=== PATIENT | female | born 1930 | race Caucasian/White ===

== ENCOUNTER → 2016-04-02 | Outpatient (CLI) | payer MEDICARE, OTHER | LOC: SP 13:03 | PROVIDERS: ATTEND Family Medicine | DX: I65.22 Occlusion and stenosis of left carotid artery (principal) | CPT/HCPCS: 93880 ==

== ENCOUNTER → 2016-12-03 | Outpatient (CLI) | payer MEDICARE, OTHER ==
--- NOTE | 2016-12-03 11:07 | RADIOLOGY REPORT (SQ) ---
EXAM DESCRIPTION: WRIST RIGHT 3 VIEWS COMPLETED DATE/TIME: 12/03/2016 10:46 am REASON FOR STUDY: PAIN IN RIGHT HAND M79.641 PAIN IN RIGHT HAND COMPARISON: None. NUMBER OF VIEWS: Three views. TECHNIQUE: AP, lateral, and oblique radiographic images acquired of the right wrist. LIMITATIONS: None. FINDINGS: MINERALIZATION: Normal. BONES: Negative ulnar variance, joint space narrowing and mild bony spurring at the right distal radi oulnar joint. Advanced osteoarthritis at the 1st carpometacarpal joint, the joint space narrowing and bony spurring . Small loose bodies. Remainder of the bony structures at the wrist are otherwise unremarkable. No acute fracture. Caps n o malalignment worrisome for carpal instability. SOFT TISSUES: No soft tissue swelling. No foreign body. OTHER: No other significant finding. IMPRESSION: Osteoarthritis at the distal radioulnar joint and 1st carpometacarpal joint No acute fracture TECHNICAL DOCUMENTATION: JOB ID: [id number] [employer]- All Rights Reserved
--- NOTE | 2016-12-03 11:09 | RADIOLOGY REPORT (SQ) ---
EXAM DESCRIPTION: HAND RIGHT 3 VIEWS COMPLETED DATE/TIME: 12/03/2016 10:46 am REASON FOR STUDY: PAIN IN RIGHT HAND M79.641 PAIN IN RIGHT HAND COMPARISON: None. EXAM PARAMETERS: NUMBER OF VIEWS: Three views. TECHNIQUE: AP, lateral and oblique radiographic images acquired of the right hand. LIMITATIONS: None. FINDINGS: MINERALIZATION: Normal. BONES: No acute fracture or dislocation. No worrisome bone lesions. JOINTS: Advanced osteoarthritis at the distal radioulnar joint, and 1st carpometacarpal joint. Joint space narrowing and bony spurring, articular surface sclerosis. Moderate osteoarthritis at the thumb MCP joint, with joint space narrowing. No bulky bony spurring. Mild osteoarthritis at the 2nd distal interphalangeal joint, 3rd and 4th PIP joints, 5th PIP joint. Mild joint space narrowing without bulky bony spurring SOFT TISSUES: No soft tissue swelling. No foreign body. OTHER: No other significant finding. IMPRESSION: Osteoarthritis TECHNICAL DOCUMENTATION: JOB ID: [id number] [employer]- All Rights Reserved
== END ==
LOC: OD 10:15
PROVIDERS: ATTEND Family Medicine
DX: M79.641 Pain in right hand (principal); M19.041 Primary osteoarthritis, right hand

== ENCOUNTER 2017-07-13 14:19 | Inpatient (IN) | payer MEDICARE, OTHER ==
--- NOTE | 2017-07-13 14:51 | ER Document Report ---
ED General - General Chief Complaint: Shortness Of Breath Stated Complaint: SHORTNESS OF BREATH Time Seen by Provider: 07/13/17 14:46 Mode of Arrival: Ambulatory Information source: Patient Notes: This is an 86-year-old female with a remote history of breast cancer (status post left mastectomy in 1993), pulmonary embolism in 2014 (treated with 6 months of Eliquis), presents to the emergency room with progressively worsening shortness of breath over the past month. TRAVEL OUTSIDE OF THE [place] IN LAST 30 DAYS: No - HPI Onset: Last week Onset/Duration: Gradual Quality of pain: No pain Severity: None Pain Level: Denies Associated symptoms: Shortness of breath. denies: Chest pain, Fever Exacerbated by: Denies Relieved by: Denies Similar symptoms previously: No Recently seen / treated by doctor: No - Related Data Allergies/Adverse Reactions: Sulfa (Sulfonamide Antibiotics) Allergy (Intermediate, Verified 07/13/17 14:20) Hives codeine [Codeine] Adverse Reaction (Mild, Verified 07/13/17 14:20) Nausea bee stings Allergy (Severe, Uncoded 07/13/17 14:20) Hives Past Medical History - General Information source: Patient - Social History Smoking Status: Never Smoker Cigarette use (# per day): No Chew tobacco use (# tins/day): No Frequency of alcohol use: None Drug Abuse: None Lives with: Family Family History: CAD, CVA, Hyperlipidemia, Hypertension, Malignancy, Thyroid Disfunction Patient has suicidal ideation: No Patient has homicidal ideation: No - Past Medical History Cardiac Medical History: Reports: Hx Hypercholesterolemia, Hx Pulmonary Embolism Denies: Hx Heart Attack, Hx Hypertension Pulmonary Medical History: Denies: Hx Asthma Neurological Medical History: Reports: Hx Migraine. Denies: Hx Cerebrovascular Accident, Hx Seizures Endocrine Medical History: Reports: Hx Hypothyroidism Renal/ Medical History: Reports: Hx Kidney Stones Malignancy Medical History: Reports: Hx Breast Cancer - Left GI Medical History: Reports: Hx Gastroesophageal Reflux Disease, Hx Colonoscopy , Hx Endoscopy. Denies: Hx Hiatal Hernia, Hx Ulcer Musculoskeltal Medical History: Reports Hx Arthritis Past Surgical History: Reports: Hx Mastectomy - left. Denies: Hx Hysterectomy, Hx Open Heart Surgery - Immunizations Immunizations up to date: Yes Hx Diphtheria, Pertussis, Tetanus Vaccination: Yes Review of Systems - Review of Systems Constitutional: denies: Chills, Fever EENT: No symptoms reported Cardiovascular: See HPI Respiratory: See HPI Gastrointestinal: No symptoms reported Genitourinary: No symptoms reported Female Genitourinary: No symptoms reported Musculoskeletal: No symptoms reported Skin: No symptoms reported Hematologic/Lymphatic: No symptoms reported Neurological/Psychological: No symptoms reported Physical Exam - Vital signs Vitals: Temp Pulse Resp BP Pulse Ox 97.8 F 78 14 148/54 H 95 07/13/17 14:25 07/13/17 14:25 07/13/17 14:25 07/13/17 14:25 07/13/17 14:25 Notes: Physical exam: GENERAL: 86-year-old female, alert and oriented 3, no acute distress HEAD: Atraumatic, normocephalic. EYES: Pupils equal round and reactive to light, extraocular movements intact, sclera anicteric, conjunctiva are normal. ENT: TMs normal, nares patent, oropharynx clear without exudates. Moist mucous membranes. NECK: Normal range of motion, supple without obvious mass or JVD. LUNGS: Breath sounds clear to auscultation bilaterally and equal. No wheezes rales or rhonchi. HEART: Regular rate and rhythm with a 1/6 systolic murmur at the left lateral sternal border, rubs or gallops. ABDOMEN: Soft, normoactive bowel sounds. No tenderness to palpation. No guarding, no rebound. No masses appreciated. EXTREMITIES: Normal range of motion, no pitting or edema. No clubbing or cyanosis. NEUROLOGICAL: Cranial nerves II through XII grossly intact. Normal speech, moving all extremities. PSYCH: Normal mood, normal affect. SKIN: Warm, Dry, normal turgor, no rashes or lesions noted. Course - Re-evaluation Re-evalutation: 07/13/17 17:41 The concern for this patient is that she is desaturating with minimal activity. She does have a history of valve disease in the past and does have a murmur appreciated on exam now. The plan will be to admit, continue cardiac enzymes, cardiac evaluation including echo. - Vital Signs Vital signs: Temp Pulse Resp BP Pulse Ox 98.2 F 75 16 147/59 H 98 07/13/17 20:38 07/13/17 20:38 07/13/17 20:38 07/13/17 20:38 07/13/17 20:38 - Laboratory Result Diagrams: 07/13/17 15:03 07/13/17 15:03 Laboratory results interpreted by me: 07/13/17 07/13/17 07/13/17 15:03 15:03 15:03 Hgb 11.8 L Hct 35.5 L BUN 21 H Est GFR (Non-Af Amer) 53 L TSH < 0.01 L Free T4 2.59 H - EKG Interpretation by Me Rate: Normal Rhythm: NSR - EKG shows normal sinus rhythm with a ventricular rate of 77, no acute ST-T wave changes Discharge - Discharge Clinical Impression: Dyspnea Condition: Stable Disposition: ADMITTED INPATIENT Admitting Provider: [facility] Admitted: Telemetry
[2017-07-13 15:30] LABS: ABSOLUTE EOSINOPHILS # (AUTO) 0.2 10^3/uL (0.0-0.6); ABSOLUTE LYMPHOCYTES (AUTO) 1.6 10^3/uL (0.5-4.7); ABSOLUTE MONOCYTES (AUTO) 0.7 10^3/uL (0.1-1.4); BASOPHILS % (AUTO) 0.9 % (0-2); EOSINOPHILS % (AUTO) 3.1 % (0-6); HEMATOCRIT 35.5 % (36.0-47.0); HEMOGLOBIN 11.8 g/dL (12.0-15.5); LYMPHOCYTES % (AUTO) 29.2 % (13-45); MEAN CORPUSCULAR HEMOGLOBIN 30.9 pg (27.0-33.4); MEAN CORPUSCULAR HGB CONC 33.2 g/dL (32.0-36.0); MEAN CORPUSCULAR VOLUME 93 fl (80-97); MONOCYTES % (AUTO) 12.1 % (3-13); PLATELET COUNT 217 10^3/uL (150-450); RED BLOOD COUNT 3.81 10^6/uL (3.72-5.28); RED CELL DISTRIBUTION WIDTH 13.3 % (11.5-14.0); SEGMENTED NEUTROPHILS % (AUTO) 54.7 % (42-78); TOTAL CELLS COUNTED % (AUTO) 100 %; WHITE BLOOD COUNT 5.4 10^3/uL (4.0-10.5)
[2017-07-13 15:36] LABS: INTERNATIONAL RATION (INR) 1.06; PROTHROMBIN TIME 14.4 SEC (11.4-15.4)
[2017-07-13 15:53] LABS: ALANINE AMINOTRANSFERASE 25 U/L (9-52); ALBUMIN 3.6 g/dL (3.5-5.0); ALKALINE PHOSPHATASE 84 U/L (38-126); ANION GAP 10 (5-19); ASPARTATE AMINO TRANSFERASE 24 U/L (14-36); BILIRUBIN,DIRECT 0.3 mg/dL (0.0-0.4); BILIRUBIN,TOTAL 0.5 mg/dL (0.2-1.3); BLOOD UREA NITROGEN 21 mg/dL (7-20); CALCIUM 9.4 mg/dL (8.4-10.2); CARBON DIOXIDE 27 mmol/L (22-30); CHLORIDE 106 mmol/L (98-107); CREATINE KINASE 64 U/L (30-135); GLUCOSE 107 mg/dL (75-110); POTASSIUM 4.3 mmol/L (3.6-5.0); SODIUM 142.7 mmol/L (137-145); TOTAL PROTEIN 6.4 g/dL (6.3-8.2)
[2017-07-13 16:05] LABS: CREATINE KINASE MB 1.43 ng/mL (<4.55); TROPONIN I < 0.012 ng/mL
--- NOTE | 2017-07-13 17:41 | RADIOLOGY REPORT (SQ) ---
EXAM DESCRIPTION: CTA CHEST COMPLETED DATE/TIME: 07/13/2017 5:13 pm REASON FOR STUDY: sob COMPARISON: 11/15/2015 TECHNIQUE: CT scan of the chest performed using helical scanning technique with dynamic intravenous contrast injection. Images reviewed with lung, soft tissue and bone windows. Reconstructed coronal and sagittal MPR images reviewed. Additional 3 dimensional post-processing performed to develop Maximal Intensity Projection images (CA P). All images stored on PACS. All CT scanners at this facility use dose modulation, iterative reconstruction, and/or weight based d osing when appropriate to reduce radiation dose to as low as reasonably achievable (ALARA). [facility]: Dose Right [facility]: CareDose [facility]: Dose Right [facility]: Teradose 4D [facility]: SiC Processing CONTRAST TYPE AND DOSE: contrast/concentration: Isovue 370.00 mg/ml; Total Contrast Delivered: 65.0 ml; Total Saline Delivered: 105.0 ml Contrast bolus optimized for the pulmonary arteries. Not diagnostic for the aorta. RENAL FUNCTION: BUN 21 creatinine 1 RADIATION DOSE: CT Rad equipment meets quality standard of care and radiation dose reduction techniq ues were employed. CTDIvol: 14.3 - 16.5 mGy. DLP: 542 mGy-cm. . LIMITATIONS: None. FINDINGS: LUNGS AND PLEURA: Pleural/parenchymal scarring in the lung apices with pleural calcificati ons. AORTA AND GREAT VESSELS: No aneurysm. Contrast bolus not optimized for the aorta. HEART: No pericardial effusion. Moderate to marked coronary artery calcifications. PULMONARY ARTERIES: No emboli visualized in the main pulmonary arteries or the segmental branches. HILAR AND MEDIASTINAL STRUCTURES: No hilar or mediastinal masses or adenopathy. There is a prominent hiatal hernia. HARDWARE: None in the chest. UPPER ABDOMEN: Aortic atherosclerosis. Hiatal hernia. No acute abnormality. THYROID AND OTHER SOFT TISSUES: No masses. No adenopathy. BONES: Thoracolumbar spondylosis. Lumbar degenerative disc changes. 3D MIPS: Confirm above findings. OTHER: No other significant finding. IMPRESSION: 1. There is no evidence of pulmonary emboli. 2. Apical pleural/ parenchymal scarring. 3. Prominent hiatal hernia. 4. Aortic atherosclerosis. 5. Thoracolumbar degenerative changes. COMMENT: Quality ID # [id number]: Final reports with documentation of one or more dose reduction techniques (e.g., Automated exposure control, adjustment of the mA and/or kV according to patient size, use of iterative reconstruction technique) TECHNICAL DOCUMENTATION: JOB ID: [id number] [employer]- All Rights Reserved Reading location - IP/workstation name: [email or web address]
[2017-07-13] MEDS ORDERED: IPRATROPIUM/ALBUTEROL 0.5-2.5 MG/3 ML AMPUL NEB PRN (17:45)
[2017-07-13] MEDS ORDERED: ACETAMINOPHEN 325 MG TABLET PO PRN (17:45)
--- NOTE | 2017-07-13 17:55 | PDOC H&P ---
History of Present Illness Admission Date/PCP: PRITESH OLVERA MD Patient complains of: sob/hypoxia History of Present Illness: GABI ESCOBEDO is a 86 year old female pt came to [facility] today with c/o sob and fatigue since last 2wk pt o2 sat was 92 on room air and drop 80 when she walk pt had h/o pein 2014 and was 6 month eliqus pt denied any chest pain no cough pt seen by dr araceli soliz for palpitation and all work up stable Past Medical History Cardiac Medical History: Reports: Atrial Fibrillation, Hyperlipidema, Pulmonary Embolism Denies: Myocardial Infarction, Hypertension Pulmonary Medical History: Denies: Asthma Neurological Medical History: Reports: Migraine Denies: Seizures Endocrine Medical History: Reports: Hypothyroidism Malignancy Medical History: Reports: Breast Cancer - Left GI Medical History: Reports: Gastroesophageal Reflux Disease Denies: Hiatal Hernia Musculoskeltal Medical History: Reports: Arthritis Hematology: Denies: Anemia, Sickle Cell Disease Past Surgical History Past Surgical History: Reports: Mastectomy - left Denies: Amputation, Hysterectomy Social History Smoking Status: Never Smoker Frequency of Alcohol Use: None Hx Recreational Drug Use: No Hx Prescription Drug Abuse: No Family History Family History: Reviewed & Not Pertinent, CAD, CVA, Hyperlipidemia, Hypertension , Malignancy, Thyroid Disfunction Parental Family History Reviewed: Yes Children Family History Reviewed: Yes Sibling(s) Family History Reviewed.: Yes Medication/Allergy Home Medications: Atorvastatin Calcium [Lipitor 10 mg Tablet] 10 mg PO QHS 06/01/11 Paroxetine HCl [Paxil] 10 mg PO DAILY 06/01/11 Apixaban [Eliquis 5 mg Tablet] 5 mg PO BID #60 tablet 10/03/14 Levothyroxine Sodium 150 mcg PO DAILY #30 tablet 10/03/14 Tramadol HCl/Acetaminophen [Ultracet 37.5 mg/325 mg Tablet] 1 each PO Q6 #20 tablet 12/26/14 Acyclovir [Zovirax 800 mg Tablet] 800 mg PO 5XD #50 tab 11/18/15 Allergies/Adverse Reactions: Sulfa (Sulfonamide Antibiotics) Allergy (Intermediate, Verified 07/13/17 14:20) Hives codeine [Codeine] Adverse Reaction (Mild, Verified 07/13/17 14:20) Nausea bee stings Allergy (Severe, Uncoded 07/13/17 14:20) Hives Review of Systems Constitutional: PRESENT: fatigue, weakness. ABSENT: chills, fever(s), headache( s), weight gain, weight loss Eyes: ABSENT: visual disturbances Ears: ABSENT: hearing changes Cardiovascular: PRESENT: dyspnea on exertion. ABSENT: chest pain, edema, orthropnea, palpitations Respiratory: ABSENT: cough, hemoptysis Gastrointestinal: ABSENT: abdominal pain, constipation, diarrhea, hematemesis, hematochezia, nausea, vomiting Genitourinary: ABSENT: dysuria, hematuria Musculoskeletal: ABSENT: joint swelling Integumentary: ABSENT: rash, wounds Neurological: ABSENT: abnormal gait, abnormal speech, confusion, dizziness, focal weakness, syncope Psychiatric: ABSENT: anxiety, depression, homidical ideation, suicidal ideation Endocrine: ABSENT: cold intolerance, heat intolerance, menstrual abnormalities, polydipsia, polyuria Hematologic/Lymphatic: ABSENT: easy bleeding, easy bruising, lymphadenopathy Physical Exam Vital Signs: Temp Pulse Resp BP Pulse Ox 97.8 F 78 19 140/64 H 97 07/13/17 14:25 07/13/17 14:25 07/13/17 15:01 07/13/17 15:01 07/13/17 15:06 Intake & Output 07/12/17 07/13/17 07/14/17 06:59 06:59 06:59 Weight 65.9 kg General appearance: PRESENT: no acute distress, well-developed, well-nourished Head exam: PRESENT: atraumatic, normocephalic Eye exam: PRESENT: conjunctiva pink, EOMI, PERRLA. ABSENT: scleral icterus Ear exam: PRESENT: normal external ear exam Mouth exam: PRESENT: moist, tongue midline Neck exam: PRESENT: full ROM. ABSENT: carotid bruit, JVD, lymphadenopathy, thyromegaly Respiratory exam: PRESENT: clear to auscultation savita Cardiovascular exam: PRESENT: RRR. ABSENT: diastolic murmur, rubs, systolic murmur Pulses: PRESENT: normal dorsalis pedis pul, +2 pedal pulses bilateral Vascular exam: PRESENT: normal capillary refill GI/Abdominal exam: PRESENT: normal bowel sounds, soft. ABSENT: distended, guarding, mass, organolmegaly, rebound, tenderness Rectal exam: PRESENT: deferred Extremities exam: ABSENT: pedal edema Musculoskeletal exam: PRESENT: ambulatory Neurological exam: PRESENT: alert, awake, oriented to person, oriented to place , oriented to time, oriented to situation, CN II-XII grossly intact. ABSENT: motor sensory deficit Psychiatric exam: PRESENT: appropriate affect, normal mood. ABSENT: homicidal ideation, suicidal ideation Skin exam: PRESENT: dry, intact, warm. ABSENT: cyanosis, rash Results Laboratory Results: 07/13/17 15:03 07/13/17 15:03 07/13/17 07/13/17 15:03 15:03 WBC 5.4 RBC 3.81 Hgb 11.8 L Hct 35.5 L MCV 93 MCH 30.9 MCHC 33.2 RDW 13.3 Plt Count 217 Seg Neutrophils % 54.7 Lymphocytes % 29.2 Monocytes % 12.1 Eosinophils % 3.1 Basophils % 0.9 Absolute Neutrophils 3.0 Absolute Lymphocytes 1.6 Absolute Monocytes 0.7 Absolute Eosinophils 0.2 Absolute Basophils 0.0 Sodium 142.7 Potassium 4.3 Chloride 106 Carbon Dioxide 27 Anion Gap 10 BUN 21 H Creatinine 0.99 Est GFR ( Amer) > 60 Est GFR (Non-Af Amer) 53 L Glucose 107 Calcium 9.4 Total Bilirubin 0.5 AST 24 ALT 25 Alkaline Phosphatase 84 Total Protein 6.4 Albumin 3.6 07/13/17 07/13/17 15:03 15:03 Creatine Kinase 64 CK-MB (CK-2) 1.43 Troponin I < 0.012 Impressions: Chest/Abdomen CTA 07/13/17 16:31 IMPRESSION: 1. There is no evidence of pulmonary emboli. 2. Apical pleural/ parenchymal scarring. 3. Prominent hiatal hernia. 4. Aortic atherosclerosis. 5. Thoracolumbar degenerative changes. Assessment & Plan - Diagnosis (1) Shortness of breath Is this a current diagnosis for this admission?: Yes Plan: cta neg will order 2 d echo cont pulse ox consult cardilogy (2) Fatigue Qualifiers: Fatigue type: unspecified Qualified Code(s): R53.83 - Other fatigue Is this a current diagnosis for this admission?: Yes Plan: check tsh (3) Hypertension Qualifiers: Hypertension type: essential hypertension Qualified Code(s): I10 - Essential (primary) hypertension Is this a current diagnosis for this admission?: Yes Plan: stable (4) Hyperlipidemia Qualifiers: Hyperlipidemia type: unspecified Qualified Code(s): E78.5 - Hyperlipidemia , unspecified Is this a current diagnosis for this admission?: Yes (5) Arthritis Is this a current diagnosis for this admission?: Yes (6) Hypothyroidism Qualifiers: Hypothyroidism type: unspecified Qualified Code(s): E03.9 - Hypothyroidism , unspecified Is this a current diagnosis for this admission?: Yes Plan: check tsh (7) Breast CA Qualifiers: Breast location: unspecified site of breast Is this a current diagnosis for this admission?: Yes Plan: s/p surgery - Time Time Spent: 30 to 50 Minutes Medications reviewed and adjusted accordingly: Yes Anticipated discharge: Home Within: Other - Inpatient Certification Medical Necessity: Need Close Monitoring Due to Risk of Patient Decompensation Post Hospital Care: D/C Records Coordinator Documentation - Plan Summary Plan Summary: d/w pt and daughter about all test repoart and admit and see md order
[2017-07-13 18:33] LABS: FREE T4 (FREE THYROXINE) 2.59 ng/dL (0.78-2.19)
[2017-07-13 18:50] LABS: THYROID STIMULATING HORMONE < 0.01 uIU/mL (0.47-4.68)
--- NOTE | 2017-07-13 21:38 | EKG REPORT ---
SEVERITY:- ABNORMAL ECG - SINUS RHYTHM LEFT ATRIAL ABNORMALITY LVH WITH SECONDARY REPOLARIZATION ABNORMALITY : Confirmed by: Marilee Willard 13-Jul-2017 21:37:56
[2017-07-13] MEDS: ATORVASTATIN CALCIUM 10 MG TABLET PO SCH (21:45)
[2017-07-13] MEDS: FAMOTIDINE 20 MG TABLET PO SCH (21:45)
[2017-07-13] MEDS: PAROXETINE HCL 20 MG TABLET PO SCH (21:45)
[2017-07-13] MEDS: ASPIRIN 81 MG TABLET, ENT COATED PO SCH (21:45)
[2017-07-13 21:47] LABS: CREATINE KINASE MB 1.15 ng/mL (<4.55); NT PRO BNP 592 pg/mL (<450)
[2017-07-13 21:48] LABS: TROPONIN I < 0.012 ng/mL
[2017-07-14 03:14] LABS: ABSOLUTE EOSINOPHILS # (AUTO) 0.3 10^3/uL (0.0-0.6); ABSOLUTE LYMPHOCYTES (AUTO) 2.1 10^3/uL (0.5-4.7); ABSOLUTE MONOCYTES (AUTO) 0.7 10^3/uL (0.1-1.4); ABSOLUTE NEUT (AUTO) 2.3 10^3/uL (1.7-8.2); BASOPHILS % (AUTO) 0.8 % (0-2); EOSINOPHILS % (AUTO) 4.7 % (0-6); HEMATOCRIT 33.3 % (36.0-47.0); HEMOGLOBIN 11.2 g/dL (12.0-15.5); LYMPHOCYTES % (AUTO) 38.5 % (13-45); MEAN CORPUSCULAR HEMOGLOBIN 31.1 pg (27.0-33.4); MEAN CORPUSCULAR HGB CONC 33.7 g/dL (32.0-36.0); MEAN CORPUSCULAR VOLUME 92 fl (80-97); MONOCYTES % (AUTO) 13.3 % (3-13); PLATELET COUNT 187 10^3/uL (150-450); RED BLOOD COUNT 3.62 10^6/uL (3.72-5.28); RED CELL DISTRIBUTION WIDTH 12.9 % (11.5-14.0); SEGMENTED NEUTROPHILS % (AUTO) 42.7 % (42-78); TOTAL CELLS COUNTED % (AUTO) 100 %; WHITE BLOOD COUNT 5.4 10^3/uL (4.0-10.5)
[2017-07-14 03:23] LABS: ANION GAP 6 (5-19); BLOOD UREA NITROGEN 22 mg/dL (7-20); CALCIUM 9.2 mg/dL (8.4-10.2); CARBON DIOXIDE 28 mmol/L (22-30); CHLORIDE 109 mmol/L (98-107); CREATINE KINASE 53 U/L (30-135); GLUCOSE 104 mg/dL (75-110); POTASSIUM 4.1 mmol/L (3.6-5.0); SODIUM 143.2 mmol/L (137-145)
[2017-07-14 03:35] LABS: CREATINE KINASE MB 0.87 ng/mL (<4.55)
[2017-07-14 03:39] LABS: TROPONIN I < 0.012 ng/mL
[2017-07-14] MEDS ORDERED: LEVOTHYROXINE SODIUM 0.1 MG TABLET PO SCH (06:00)
[2017-07-14] MEDS ORDERED: LEVOTHYROXINE SODIUM 0.075 MG TABLET PO SCH (06:00)
--- NOTE | 2017-07-14 08:26 | PDOC PROGRESS REPORT ---
Subjective Progress Note for:: 07/14/17 Subjective:: Patient is currently doing well denied any chest pain denied any shortness of the breath CTA negative for pulmonary embolism Patient seen by cardiology wait for the echocardiogram Since TSH is very low Reason For Visit: SOB HYPOXIA Physical Exam Vital Signs: Temp Pulse Resp BP Pulse Ox 97.9 F 71 18 127/44 H 96 07/14/17 04:02 07/14/17 04:02 07/14/17 04:02 07/14/17 04:02 07/14/17 04:02 Intake & Output 07/13/17 07/14/17 07/15/17 06:59 06:59 06:59 Intake Total 320 Balance 320 Weight 57.4 kg General appearance: PRESENT: no acute distress, well-developed, well-nourished Head exam: PRESENT: atraumatic, normocephalic Eye exam: PRESENT: conjunctiva pink, EOMI, PERRLA. ABSENT: scleral icterus Ear exam: PRESENT: normal external ear exam Mouth exam: PRESENT: moist, tongue midline Neck exam: PRESENT: full ROM. ABSENT: carotid bruit, JVD, lymphadenopathy, thyromegaly Respiratory exam: PRESENT: clear to auscultation savita Cardiovascular exam: PRESENT: RRR. ABSENT: diastolic murmur, rubs, systolic murmur Pulses: PRESENT: normal dorsalis pedis pul, +2 pedal pulses bilateral Vascular exam: PRESENT: normal capillary refill GI/Abdominal exam: PRESENT: normal bowel sounds, soft. ABSENT: distended, guarding, mass, organolmegaly, rebound, tenderness Rectal exam: PRESENT: deferred Extremities exam: ABSENT: pedal edema Musculoskeletal exam: PRESENT: ambulatory Neurological exam: PRESENT: alert, awake, oriented to person, oriented to place , oriented to time, oriented to situation, CN II-XII grossly intact. ABSENT: motor sensory deficit Psychiatric exam: PRESENT: appropriate affect, normal mood. ABSENT: homicidal ideation, suicidal ideation Skin exam: PRESENT: dry, intact, warm. ABSENT: cyanosis, rash Results Laboratory Results: 07/14/17 03:03 07/14/17 03:03 07/14/17 07/14/17 03:03 03:03 WBC 5.4 RBC 3.62 L Hgb 11.2 L Hct 33.3 L MCV 92 MCH 31.1 MCHC 33.7 RDW 12.9 Plt Count 187 Seg Neutrophils % 42.7 Lymphocytes % 38.5 Monocytes % 13.3 H Eosinophils % 4.7 Basophils % 0.8 Absolute Neutrophils 2.3 Absolute Lymphocytes 2.1 Absolute Monocytes 0.7 Absolute Eosinophils 0.3 Absolute Basophils 0.0 Sodium 143.2 Potassium 4.1 Chloride 109 H Carbon Dioxide 28 Anion Gap 6 BUN 22 H Creatinine 0.78 Est GFR ( Amer) > 60 Est GFR (Non-Af Amer) > 60 Glucose 104 Calcium 9.2 07/13/17 07/13/17 07/14/17 21:03 21:03 03:03 Creatine Kinase 62 CK-MB (CK-2) 1.15 0.87 Troponin I < 0.012 < 0.012 NT-Pro-B Natriuret Pep 592 H 07/14/17 03:03 Creatine Kinase 53 CK-MB (CK-2) Troponin I NT-Pro-B Natriuret Pep Impressions: Chest/Abdomen CTA 07/13/17 16:31 IMPRESSION: 1. There is no evidence of pulmonary emboli. 2. Apical pleural/ parenchymal scarring. 3. Prominent hiatal hernia. 4. Aortic atherosclerosis. 5. Thoracolumbar degenerative changes. Assessment & Plan - Diagnosis (1) Shortness of breath Is this a current diagnosis for this admission?: Yes Plan: Will wait for the echo reportFollow-up with cardiology will try to walk the patient's and check the patient's pulse ox discussed with the nursing staff (2) Fatigue Qualifiers: Fatigue type: unspecified Qualified Code(s): R53.83 - Other fatigue Is this a current diagnosis for this admission?: Yes Plan: Stable underlying thyroid issues we will hold the thyroid medications rule out any cardiac issues (3) Hypertension Qualifiers: Hypertension type: essential hypertension Qualified Code(s): I10 - Essential (primary) hypertension Is this a current diagnosis for this admission?: Yes Plan: stable (4) Hyperlipidemia Qualifiers: Hyperlipidemia type: unspecified Qualified Code(s): E78.5 - Hyperlipidemia , unspecified Is this a current diagnosis for this admission?: Yes (5) Arthritis Is this a current diagnosis for this admission?: Yes (6) Hypothyroidism Qualifiers: Hypothyroidism type: unspecified Qualified Code(s): E03.9 - Hypothyroidism , unspecified Is this a current diagnosis for this admission?: Yes Plan: Currently hold the thyroid medications (7) Breast CA Qualifiers: Breast location: unspecified site of breast Is this a current diagnosis for this admission?: Yes - Time Time Spent with patient: 15-24 minutes Medications reviewed and adjusted accordingly: Yes Anticipated discharge: Home Within: Other - Inpatient Certification Medical Necessity: Need Close Monitoring Due to Risk of Patient Decompensation Post Hospital Care: D/C Manugrapher Documentation - Plan Summary Plan Summary: MD orders as above discussed with the patient and the daughter regarding the patient's current conditions coordinate care with a home management supervisor
[2017-07-14] MEDS: FAMOTIDINE 20 MG TABLET PO SCH ×2 (09:37→21:13)
[2017-07-14] MEDS: ENOXAPARIN SODIUM INJ 40 MG/0.4 ML DISP.SYRIN SUBCUT SCH (09:37)
--- NOTE | 2017-07-14 09:44 | EKG REPORT ---
SEVERITY:- ABNORMAL ECG - SINUS RHYTHM LEFT VENTRICULAR HYPERTROPHY : Confirmed by: Marilee Willard 14-Jul-2017 09:43:37
[2017-07-14 09:59] LABS: CREATINE KINASE MB 1.08 ng/mL (<4.55); NT PRO BNP 756 pg/mL (<450)
[2017-07-14] MEDS ORDERED: FUROSEMIDE 40 MG TABLET PO SCH (10:00)
[2017-07-14 10:04] LABS: TROPONIN I < 0.012 ng/mL
[2017-07-14] MEDS: FUROSEMIDE 20 MG TABLET PO SCH (12:10)
--- NOTE | 2017-07-14 12:13 | PDOC CONSULTATION ---
Consultation Consult Date: 07/13/17 Attending physician:: PRITESH OLVERA Consult reason:: Shortness of breath History of Present Illness Admission Date/PCP: 07/13/17 17:53 PRITESH OLVERA MD Patient complains of: Shortness of breath History of Present Illness: GABI ESCOBEDO is a 86 year old female, who was admitted because of progressive shortness of breath. Patient claims that she was walked and her oxygen dropped. Patient has history of pulmonary embolism and was on Eliquis for about 6 months. Patient denied any prior history of myocardial infarction, angina, congestive heart failure. She has history of palpitations for which she was evaluated in the past and nothing significant was found. Patient denied any PND, orthopnea. She has occasional intermittent pedal edema. Past Medical History Cardiac Medical History: Reports: Atrial Fibrillation, Hyperlipidema, Pulmonary Embolism Denies: Myocardial Infarction, Hypertension Pulmonary Medical History: Denies: Asthma Neurological Medical History: Reports: Migraine Denies: Seizures Endocrine Medical History: Reports: Hypothyroidism Malignancy Medical History: Reports: Breast Cancer - Left GI Medical History: Reports: Gastroesophageal Reflux Disease Denies: Hiatal Hernia Musculoskeltal Medical History: Reports: Arthritis Hematology: Denies: Anemia, Sickle Cell Disease Past Surgical History Past Surgical History: Reports: Mastectomy - left Denies: Amputation, Hysterectomy Social History Information Source: Patient Smoking Status: Never Smoker Frequency of Alcohol Use: None Hx Recreational Drug Use: No Hx Prescription Drug Abuse: No - Advance Directive Resuscitation Status: Full Code Surrogate healthcare decision maker:: Patient's daughter is the surrogate decision-maker Family History Family History: CAD, CVA, Hyperlipidemia, Hypertension, Malignancy, Thyroid Disfunction Parental Family History Reviewed: Yes Children Family History Reviewed: Yes Sibling(s) Family History Reviewed.: Yes Medication/Allergy Home Medications: Aspirin [Aspirin EC] 81 mg PO DAILY 07/13/17 Atorvastatin Calcium [Lipitor 10 mg Tablet] 10 mg PO QHS 07/13/17 Levothyroxine Sodium [Synthroid] 175 mcg PO DAILY 07/13/17 Paroxetine HCl [Paxil 20 mg Tablet] 20 mg PO DAILY 07/13/17 Allergies/Adverse Reactions: Sulfa (Sulfonamide Antibiotics) Allergy (Intermediate, Verified 07/13/17 14:20) Hives codeine [Codeine] Adverse Reaction (Mild, Verified 07/13/17 14:20) Nausea bee stings Allergy (Severe, Uncoded 07/13/17 14:20) Hives Review of Systems Review of Systems: Please see history of present illness and past medical history as wall. Constitutional: No fever or chills reported. Head : No recent chronic headaches, recent head injury. Eyes: No recent eye pain, diplopia, redness, discharge, acute visual changes. Ears: No recent chronic ear pain, acute hearing loss, ear discharge. Oral cavity: No recent ulcerations, bleeding, oral cavity discomfort. Neck: No recent acute neck pain reported. Hematologic: No recent easy bruising or bleeding or hematologic malignancy reported. Lymphatic: No recent lymphatic malignancy, chronic lymphadenopathy reported yet Cardiovascular system review: See history of present illness. Respiratory system review: No recent chronic cough, hemoptysis, positive blood clots in the lungs reported. Mild Shortness of breath on exertion Gastrointestinal system review: Negative for any recent acute or chronic abdominal pain, hematemesis, melena, recent change in bowel habits. Genitourinary system review: No recent acute or chronic hematuria, flank pain, UTI etc. reported. Skin system review: Negative for any recent abnormal bruising, no rash, no pruritus reported. Neurologic: No prior history of strokes, mini strokes, seizure disorder. Psychologic: No history of major psychosis or major depression reported. Musculoskeletal: Minor aches and pains reported. No acute joint swelling reported. Endocrine: No recent polyuria, polydipsia, recent heat or cold intolerance. Physical Exam Vital Signs: Temp Pulse Resp BP Pulse Ox 97.8 F 78 22 H 156/63 H 95 07/13/17 14:25 07/13/17 14:25 07/13/17 19:01 07/13/17 19:00 07/13/17 19:01 Exam: GENERAL: well-nourished and in no acute distress. Alert and oriented x3 HEAD: Atraumatic, normocephalic. EYES: Pupils equal round and reactive to light, extraocular movements intact, sclera anicteric, conjunctiva are normal. ENT: TMs normal, nares patent, oropharynx clear without exudates. Moist mucous membranes. No oral ulcerations or bleeding gums noted NECK: supple without lymphadenopathy. Trachea is central. No cervical or axillary lymphadenopathy noted. Carotids are 2+, JVD borderline elevated at around 8-10 cm. LUNGS: Respiration seems nonlabored, no significant accessory muscle action noted. Breath sounds clear to auscultation bilaterally and equal noted. No wheezes rales or rhonchi noted. No significant dullness noted on percussion. CHEST: Palpation of the chest wall shows no significant chest wall tenderness. No other significant abnormalities noted. HEART: [place] [employer], No PSH, 1/6 TATI aortic area, 2/6 maldonado systolic murmur mitral area, no rubs, no gallops. ABDOMEN: Soft, no significant tenderness appreciated, normoactive bowel sounds. No guarding, no rebound. No rigidity noted . No masses appreciated. EXTREMITIES: Pedal pulses are 1-2+, no calf tenderness noted. No clubbing or cyanosis. Trace pedal edema noted NEUROLOGICAL: Focused neurological exam showed no significant neurologic deficit. Normal speech, no focal weakness appreciated. PSYCH: Normal mood, normal affect. Judgment and insight within normal limits. SKIN: No significant ecchymosis, skin is noted to be warm. MUSCULOSKELETAL EXAM: No significant acute joint swelling noted. Results EKG Comments: Sinus rhythm, possible LVH Impressions: Chest/Abdomen CTA 07/13/17 16:31 IMPRESSION: 1. There is no evidence of pulmonary emboli. 2. Apical pleural/ parenchymal scarring. 3. Prominent hiatal hernia. 4. Aortic atherosclerosis. 5. Thoracolumbar degenerative changes. Assessment & Plan - Diagnosis (1) Shortness of breath Is this a current diagnosis for this admission?: Yes (2) CHF (congestive heart failure) Qualifiers: Heart failure chronicity: unspecified Is this a current diagnosis for this admission?: Yes (3) Hyperlipidemia Qualifiers: Hyperlipidemia type: unspecified Qualified Code(s): E78.5 - Hyperlipidemia , unspecified Is this a current diagnosis for this admission?: Yes (4) Hypertension Qualifiers: Hypertension type: essential hypertension Qualified Code(s): I10 - Essential (primary) hypertension Is this a current diagnosis for this admission?: Yes (5) Hypothyroidism Qualifiers: Hypothyroidism type: unspecified Qualified Code(s): E03.9 - Hypothyroidism , unspecified Is this a current diagnosis for this admission?: Yes (6) History of pulmonary embolism Is this a current diagnosis for this admission?: No - Notes Notes: Shortness of breath: [place] to be most likely related to CHF from diastolic dysfunction. Patient however also noted to have mitral regurgitation murmur. Have ordered a echocardiogram. Will remove it when performed. Have ordered a BNP level. Patient started on Lasix 20 mg p.o. daily. Congestive heart failure: Possibly diastolic. However patient also has a significant heart murmur. Will review once echo is performed. Hyperlipidemia: Continue statin therapy. LDL goal should be less than 100. Hypertension: Continue current antihypertensive. Blood pressure goal is 140/90 , however could be 150/90 in this elderly patient. Hypothyroidism: Continue replacement therapy. History of pulmonary embolism: CTA of the chest reviewed. Rules out any new pulmonary embolism. Further plans after review of 2D echo and further adjustment will be made. - Time Time Spent: 30 to 50 Minutes - CODE STATUS was discussed, patient remains full code. Surrogate decision-maker unchanged. Multiple medical problems were addressed. More than 50% of the time spent coordinating care, discussing management plans with involved caregivers. Management plans discussed with involved personnels. Medical decision making was of moderate to high complexity , patient's has multiple comorbidities. Medications reviewed and adjusted accordingly: Yes
--- NOTE | 2017-07-14 19:09 | XCELERA REPORT ---
[address] [address] Transthoracic Echocardiogram Report Name: GABI ESCOBEDO Age: 86 yrs Gender: Female : 1930 Patient Status: Inpatient Patient Location: [address] [place], [place] [address] Study Date: 07/14/2017 02:24 PM Height: 65 in Weight: 145 lb BSA: 1.7 m2 Procedure: A complete two-dimensional transthoracic echocardiogram was performed (2D, M-mode, spectral and color flow Doppler). The study was technically adequate with some images being suboptimal in quality. Reason For Study: sob Ordering Physician: PRITESH OLVERA Performed By: Mirlande Weiner Interpretation Summary The left ventricular ejection fraction is normal. There is mild concentric left ventricular hypertrophy. The left ventricle is grossly normal size. Doppler measurements suggest pseudonormalized left ventricular relaxation, which is associated with grade II/IV or mild to moderate diastolic dysfunction Wall motion cannot be accurately commented on, but no definite regional wall motion abnormalities noted. Borderline right ventricular enlargement. The right ventricular systolic function is normal. The right atrium is normal in size The left atrial size is normal. There is a mild amount of mitral regurgitation There is no mitral valve stenosis. There is a mild amount of aortic regurgitation There is no aortic valve stenosis There is a mild amount of tricuspid regurgitation There is mild to moderate pulmonary hypertension by echo Right ventricular systolic pressure is estimated to be elevated at 40- 50mmHg. The pulmonic valve is not well visualized. The aortic root is not well visualized but is probably normal size. The inferior vena cava appeared normal and decreased < 50% with respiration (RAP 10-15 mmHg) There is no pericardial effusion. MMode/2D Measurements & Calculations RVDd: 3.1 cm LVIDd: 3.1 cm FS: 31.0 % Ao root diam: 3.1 cm IVSd: 1.0 cm LVIDs: 2.1 cm EDV(Teich): 36.6 ml LVPWd: 1.1 cm ESV(Teich): 14.6 ml Ao root area: 7.5 cm2 EF(Teich): 60.2 % LVOT diam: 2.0 cm LVOT area: 3.3 cm2 Doppler Measurements & Calculations MV E max alexei: MV dec slope: Ao V2 max: AI max alexei: 103.0 cm/sec 307.4 cm/sec2 245.6 cm/sec 292.9 cm/sec MV A max alexei: MV dec time: Ao max PG: AI max P.5 cm/sec 0.34 sec 24.1 mmHg 34.3 mmHg MV E/A: 0.83 Ao V2 mean: AI dec slope: 186.6 cm/sec 89.4 cm/sec2 Ao mean PG: AI P1/2t: 15.1 mmHg 959.4 msec Ao V2 VTI: 51.1 cm ELMER(I,D): 3.3 cm2 ELMER(V,D): 2.9 cm2 LV V1 max PG: SV(LVOT): 170.8 ml PA V2 max: TR max alexei: 18.7 mmHg 101.5 cm/sec 305.8 cm/sec LV V1 mean PG: PA max PG: TR max P.3 mmHg 4.1 mmHg 37.8 mmHg LV V1 max: 216.2 cm/sec LV V1 mean: 168.9 cm/sec LV V1 VTI: 52.1 cm Left Ventricle The left ventricle is grossly normal size. There is mild concentric left ventricular hypertrophy. The left ventricular ejection fraction is normal. Doppler measurements suggest pseudonormalized left ventricular relaxation, which is associated with grade II/IV or mild to moderate diastolic dysfunction. Wall motion cannot be accurately commented on, but no definite regional wall motion abnormalities noted. Right Ventricle Borderline right ventricular enlargement. There is normal right ventricular wall thickness. The right ventricular systolic function is normal. Atria The right atrium is normal in size. The left atrial size is normal. Interarterial septum not well visualized and not well dopplered. Cannot comment on ASD/PFO presence. Mitral Valve The mitral valve leaflets are sclerotic, but show no functional abnormalities. There is no mitral valve stenosis. There is a mild amount of mitral regurgitation. Aortic Valve The aortic valve is grossly normal. There is no aortic valve stenosis. There is a mild amount of aortic regurgitation. Tricuspid Valve The tricuspid valve is not well visualized, but is grossly normal. There is no tricuspid stenosis. There is a mild amount of tricuspid regurgitation. There is mild to moderate pulmonary hypertension by echo. Right ventricular systolic pressure is estimated to be elevated at 40-50mmHg. Pulmonic Valve The pulmonic valve is not well visualized. Great Vessels The aortic root is not well visualized but is probably normal size. The inferior vena cava appeared normal and decreased < 50% with respiration (RAP 10-15 mmHg). Effusions There is no pericardial effusion. : PRITESH OLVERA > Marilee Willard
[2017-07-14] MEDS: ASPIRIN 81 MG TABLET, ENT COATED PO SCH (21:13)
[2017-07-14] MEDS: PAROXETINE HCL 20 MG TABLET PO SCH (21:13)
[2017-07-14] MEDS: ATORVASTATIN CALCIUM 10 MG TABLET PO SCH (21:13)
--- NOTE | 2017-07-15 02:25 | Physician Advisory Note ---
Physician Advisor ProgressNote .: Pursuant to the plan for [facility], I have reviewed the medical record for this patient. Physician Advisor Statement: Please consider documenting, if you agree: 1. "SOB, suspect due to " [pulmonary HTN? acute or chronic diastolic CHF? Ac bronchitis? ...] 2. "mild-mod pumonary HTN" 3. ? - "Chronic hypoxemic respiratory failure, evidenced by " [or acute ? or acute on chronic? - Please document if any increased work of breathing present to support Acute resp failure dx.] - Documentation already notes O2 sats dropping into the 80s with ambulation initially. Thanks! CK
[2017-07-15 05:58] LABS: ABSOLUTE EOSINOPHILS # (AUTO) 0.3 10^3/uL (0.0-0.6); ABSOLUTE MONOCYTES (AUTO) 0.7 10^3/uL (0.1-1.4); ABSOLUTE NEUT (AUTO) 2.1 10^3/uL (1.7-8.2); BASOPHILS % (AUTO) 0.8 % (0-2); EOSINOPHILS % (AUTO) 5.1 % (0-6); HEMATOCRIT 34.5 % (36.0-47.0); HEMOGLOBIN 11.5 g/dL (12.0-15.5); LYMPHOCYTES % (AUTO) 38.8 % (13-45); MEAN CORPUSCULAR HEMOGLOBIN 30.8 pg (27.0-33.4); MEAN CORPUSCULAR HGB CONC 33.5 g/dL (32.0-36.0); MEAN CORPUSCULAR VOLUME 92 fl (80-97); MONOCYTES % (AUTO) 13.7 % (3-13); PLATELET COUNT 184 10^3/uL (150-450); RED BLOOD COUNT 3.75 10^6/uL (3.72-5.28); RED CELL DISTRIBUTION WIDTH 12.8 % (11.5-14.0); SEGMENTED NEUTROPHILS % (AUTO) 41.6 % (42-78); TOTAL CELLS COUNTED % (AUTO) 100 %; WHITE BLOOD COUNT 5.2 10^3/uL (4.0-10.5)
[2017-07-15 06:18] LABS: ANION GAP 8 (5-19); BLOOD UREA NITROGEN 18 mg/dL (7-20); CALCIUM 9.1 mg/dL (8.4-10.2); CARBON DIOXIDE 29 mmol/L (22-30); CHLORIDE 107 mmol/L (98-107); GLUCOSE 99 mg/dL (75-110); POTASSIUM 4.1 mmol/L (3.6-5.0); SODIUM 144.1 mmol/L (137-145)
--- NOTE | 2017-07-15 08:59 | PDOC PROGRESS REPORT ---
Subjective Progress Note for:: 07/15/17 Subjective:: Patient is currently doing well Patient's denied any chest pain denied any shortness of the breath Scheduled for the stress test today Reason For Visit: SOB HYPOXIA Physical Exam Vital Signs: Temp Pulse Resp BP Pulse Ox 98.2 F 69 16 141/57 H 98 07/14/17 23:29 07/15/17 08:40 07/15/17 08:40 07/15/17 07:25 07/15/17 08:40 Intake & Output 07/14/17 07/15/17 07/16/17 06:59 06:59 06:59 Intake Total 320 1230 Balance 320 1230 Weight 57.4 kg 58.8 kg General appearance: PRESENT: no acute distress, well-developed, well-nourished Head exam: PRESENT: atraumatic, normocephalic Eye exam: PRESENT: conjunctiva pink, EOMI, PERRLA. ABSENT: scleral icterus Ear exam: PRESENT: normal external ear exam Mouth exam: PRESENT: moist, tongue midline Neck exam: PRESENT: full ROM. ABSENT: carotid bruit, JVD, lymphadenopathy, thyromegaly Respiratory exam: PRESENT: clear to auscultation savita Cardiovascular exam: PRESENT: RRR. ABSENT: diastolic murmur, rubs, systolic murmur Pulses: PRESENT: normal dorsalis pedis pul, +2 pedal pulses bilateral Vascular exam: PRESENT: normal capillary refill GI/Abdominal exam: PRESENT: normal bowel sounds, soft. ABSENT: distended, guarding, mass, organolmegaly, rebound, tenderness Rectal exam: PRESENT: deferred Musculoskeletal exam: PRESENT: ambulatory Neurological exam: PRESENT: alert, awake, oriented to person, oriented to place , oriented to time, oriented to situation, CN II-XII grossly intact. ABSENT: motor sensory deficit Psychiatric exam: PRESENT: appropriate affect, normal mood. ABSENT: homicidal ideation, suicidal ideation Skin exam: PRESENT: dry, intact, warm. ABSENT: cyanosis, rash Results Laboratory Results: 07/15/17 05:37 07/15/17 05:37 07/15/17 07/15/17 05:37 05:37 WBC 5.2 RBC 3.75 Hgb 11.5 L Hct 34.5 L MCV 92 MCH 30.8 MCHC 33.5 RDW 12.8 Plt Count 184 Seg Neutrophils % 41.6 L Lymphocytes % 38.8 Monocytes % 13.7 H Eosinophils % 5.1 Basophils % 0.8 Absolute Neutrophils 2.1 Absolute Lymphocytes 2.0 Absolute Monocytes 0.7 Absolute Eosinophils 0.3 Absolute Basophils 0.0 Sodium 144.1 Potassium 4.1 Chloride 107 Carbon Dioxide 29 Anion Gap 8 BUN 18 Creatinine 0.65 Est GFR ( Amer) > 60 Est GFR (Non-Af Amer) > 60 Glucose 99 Calcium 9.1 07/13/17 07/13/17 07/14/17 21:03 21:03 03:03 Creatine Kinase 62 CK-MB (CK-2) 1.15 0.87 Troponin I < 0.012 < 0.012 NT-Pro-B Natriuret Pep 592 H 07/14/17 07/14/17 07/14/17 03:03 09:02 09:02 Creatine Kinase 53 60 CK-MB (CK-2) 1.08 Troponin I < 0.012 NT-Pro-B Natriuret Pep 756 H Impressions: Chest/Abdomen CTA 07/13/17 16:31 IMPRESSION: 1. There is no evidence of pulmonary emboli. 2. Apical pleural/ parenchymal scarring. 3. Prominent hiatal hernia. 4. Aortic atherosclerosis. 5. Thoracolumbar degenerative changes. Assessment & Plan - Diagnosis (1) Shortness of breath Is this a current diagnosis for this admission?: Yes Plan: With pretty much all test is stable patient is currently doing well (2) Fatigue Qualifiers: Fatigue type: unspecified Qualified Code(s): R53.83 - Other fatigue Is this a current diagnosis for this admission?: Yes Plan: Stable underlying thyroid issues we will hold the thyroid medications rule out any cardiac issues (3) Hypertension Qualifiers: Hypertension type: essential hypertension Qualified Code(s): I10 - Essential (primary) hypertension Is this a current diagnosis for this admission?: Yes Plan: stable (4) Hyperlipidemia Qualifiers: Hyperlipidemia type: unspecified Qualified Code(s): E78.5 - Hyperlipidemia , unspecified Is this a current diagnosis for this admission?: Yes (5) Arthritis Is this a current diagnosis for this admission?: Yes (6) Hypothyroidism Qualifiers: Hypothyroidism type: unspecified Qualified Code(s): E03.9 - Hypothyroidism , unspecified Is this a current diagnosis for this admission?: Yes (7) Breast CA Qualifiers: Breast location: unspecified site of breast Is this a current diagnosis for this admission?: Yes - Time Time Spent with patient: 15-24 minutes Medications reviewed and adjusted accordingly: Yes Anticipated discharge: Home Within: within 24 hours - Inpatient Certification Medical Necessity: Need Close Monitoring Due to Risk of Patient Decompensation Post Hospital Care: D/C Quantitative Equity Head Documentation - Plan Summary Plan Summary: continue to current medication
[2017-07-15] MEDS: FUROSEMIDE 20 MG TABLET PO SCH (10:48)
[2017-07-15] MEDS: FAMOTIDINE 20 MG TABLET PO SCH ×2 (10:48→21:30)
[2017-07-15] MEDS: ENOXAPARIN SODIUM INJ 40 MG/0.4 ML DISP.SYRIN SUBCUT SCH (10:49)
--- NOTE | 2017-07-15 12:52 | DRAGON STRESS TEST REPORT ---
INTRAVENOUS LEXISCAN CARDIOLITE STRESS TEST USING SINGLE PHOTON EMMISION COMPUTERIZED TOMOGRAPHIC. DATE OF PROCEDURE: July 15, 2017, INDICATION : Shortness of breath CARDIAC RISK FACTORS: Dyslipidemia, family history of CAD and CVA RESTING EKG: Sinus rhythm with minor nonspecific ST segment changes STRESS EKG: No significant ST segment changes noted with LexiScan bolus REASON FOR TERMINATION: Protocol. PROCEDURE REPORT: Baseline heart rate 75 beats per minute with blood pressure of 130/68. Patient had no significant complaints. Patient was bolused with Lexiscan 0.4 mg intravenously followed by saline bolus. Heart rate at 2 minutes post bolus 104 with a blood pressure of 137/57. 3 minutes post bolus heart rate 92 with blood pressure of 150/62. No significant EKG changes were noted. Patient had no significant complaints during the procedure or postprocedure. Patient injected with Aminophyllin 75 mg at 3 minutes or later after Lexiscan bolus. CONCLUSIONS: Normal EKG and hemodynamic response to IV LexiScan. NUCLEAR DATA: At rest the patient was given 10.87 millicuries of technetium 99 sestamibi injected intravenously. As per protocol rest gated SPECT images were obtained. On day of stress test, the patient was given intravenous LexiScan at a dose of 0.4 mg in 5 mL intravenously, followed by flush with normal saline. Subsequently the stress dose of 31.1 millicuries of technetium 99 sestamibi was injected intravenously. As per protocol stress gated images were obtained. NUCLEAR INTERPRETATION: Both raw and processed data were used for interpretation. Visual, qualitative, computer-generated quantitative data was used. There was good myocardial uptake of technetium compound. Motion artifact and soft tissue attenuations were noted. Increased visceral uptake was noted. No definitive areas of transient perfusion defect noted, No definitive areas of fixed perfusion defect or scars noted. EKG gated imaging showed LV EF at 75 %, rest and stress gated EF similar visually. T. I D. ratio was 1.11. Lung heart ratio noted to be within normal limits 0.36. No significant extracardiac and abnormal radiotracer activities were noted. RV free wall uptake was noted to be WNL. IMPRESSION: Also refer to comments under nuclear interpretation. Also test results needs to be interpreted in the context of pretest probability. 1. No definitive areas of transient perfusion defect noted. 2. There is no definitive scintigraphic evidence of myocardial infarction/scar. 3. EKG gated imaging shows left ventricular ejection fraction of approx. 75 %. 4. Clinical correlation requested as occasionally single vessel disease or balanced ischemia could be missed. In approximately 10% of the cases Lexiscan may not cause adequate vasodilatory stress. RECOMMENDATIONS: Aggressive risk factor modification and medical management. Further evaluation may be needed if continued symptoms or other high risk indicators are noted on clinical evaluation. Close cardiology follow-up is also recommended. Clinical correlation with echocardiogram derived ejection fraction. Inability to exercise by itself can lead to increased cardiovascular event risks. Consider cardiology consultation and or follow-up if clinically indicated. I am available for cardiology evaluation and consultation if requested by the developer architect, unless patient already has a seater grinder. CORRINE
[2017-07-15] MEDS ORDERED: REGADENOSON INJ 0.4 MG/5 ML DISP.SYRIN IV ONE (13:04)
[2017-07-15] MEDS ORDERED: AMINOPHYLLINE INJ/PF 250 MG/10 ML SDV IV ONE (13:04)
--- NOTE | 2017-07-15 20:44 | Progress Note ---
Provider Note Provider Note: Patient had nuclear stress test performed. These results were discussed. Patient was noted to have no evidence of pharmacologic stress-induced ischemia or any fixed defect. 2D echo shows LVEF to be within normal limits. Patient felt to have diastolic CHF, mild. Recommend patient be continued on low-dose Lasix. Patient will benefit from other supportive care. Patient can follow-up with me as an outpatient. Will determine need for oxygen therapy etc. with her nocturnal oximetry as an outpatient.
[2017-07-15] MEDS: PAROXETINE HCL 20 MG TABLET PO SCH (21:30)
[2017-07-15] MEDS: ATORVASTATIN CALCIUM 10 MG TABLET PO SCH (21:30)
[2017-07-15] MEDS: ASPIRIN 81 MG TABLET, ENT COATED PO SCH (21:30)
[2017-07-16 06:42] LABS: ABSOLUTE EOSINOPHILS # (AUTO) 0.3 10^3/uL (0.0-0.6); ABSOLUTE MONOCYTES (AUTO) 0.6 10^3/uL (0.1-1.4); BASOPHILS % (AUTO) 0.9 % (0-2); EOSINOPHILS % (AUTO) 6.3 % (0-6); HEMATOCRIT 33.5 % (36.0-47.0); HEMOGLOBIN 11.4 g/dL (12.0-15.5); LYMPHOCYTES % (AUTO) 40.7 % (13-45); MEAN CORPUSCULAR HEMOGLOBIN 31.2 pg (27.0-33.4); MEAN CORPUSCULAR VOLUME 92 fl (80-97); MONOCYTES % (AUTO) 11.8 % (3-13); PLATELET COUNT 205 10^3/uL (150-450); RED BLOOD COUNT 3.65 10^6/uL (3.72-5.28); RED CELL DISTRIBUTION WIDTH 13.2 % (11.5-14.0); SEGMENTED NEUTROPHILS % (AUTO) 40.3 % (42-78); TOTAL CELLS COUNTED % (AUTO) 100 %
[2017-07-16 06:56] LABS: ANION GAP 8 (5-19); BLOOD UREA NITROGEN 22 mg/dL (7-20); CALCIUM 9.2 mg/dL (8.4-10.2); CARBON DIOXIDE 28 mmol/L (22-30); CHLORIDE 108 mmol/L (98-107); GLUCOSE 94 mg/dL (75-110); POTASSIUM 4.2 mmol/L (3.6-5.0); SODIUM 144.3 mmol/L (137-145)
--- NOTE | 2017-07-16 09:17 | PDOC DISCHARGE SUMMARY ---
General - Admit/Disc Date/PCP Admission Date/Primary Care Provider: 07/13/17 17:53 PRITESH OLVERA MD Discharge Date: 07/16/17 - Discharge Diagnosis (1) Shortness of breath Is this a current diagnosis for this admission?: Yes Summary: Patient CT scan of the chest is negative and also cardiac workup is all negative have some mild diastolic dysfunctions (2) Fatigue Is this a current diagnosis for this admission?: Yes Summary: Currently hold the thyroid medication (3) Hypertension Is this a current diagnosis for this admission?: Yes Summary: Currently all stable (4) Hyperlipidemia Is this a current diagnosis for this admission?: Yes Summary: Continues to current medications (5) Arthritis Is this a current diagnosis for this admission?: Yes Summary: Use of Voltaren gel (6) Hypothyroidism Is this a current diagnosis for this admission?: Yes Summary: Currently his TSH is low hold the Synthroid (7) Breast CA Is this a current diagnosis for this admission?: Yes Summary: Currently all stable - Additional Information Resuscitation Status: Full Code Discharge Diet: Cardiac Discharge Activity: Activity As Tolerated Prescriptions: Furosemide [Lasix 20 mg Tablet] 20 mg PO ASDIR PRN #30 tablet PRN Reason: Home Medications: Aspirin [Aspirin EC] 81 mg PO DAILY 07/13/17 Atorvastatin Calcium [Lipitor 10 mg Tablet] 10 mg PO QHS 07/13/17 Paroxetine HCl [Paxil 20 mg Tablet] 20 mg PO DAILY 07/13/17 Furosemide [Lasix 20 mg Tablet] 20 mg PO ASDIR PRN #30 tablet 07/16/17 History of Present Illness History of Present Illness: GABI ESCOBEDO is a 86 year old female pt came to [facility] today with c/o sob and fatigue since last 2wk pt o2 sat was 92 on room air and drop 80 when she walk pt had h/o pein 2014 and was 6 month eliqus pt denied any chest pain no cough pt seen by dr araceli soliz for palpitation and all work up stable Hospital Course Hospital Course: This 86-year-old Female present in the office with a complaining from fatigue tired and shortness of the breath and the patient at this point suggested in the hospital for further evaluations and patient was CT angiogram was done and was all negative and patient had a cardiac consult was done and echocardiogram and stress test was done was all stable Patients walk in the hallway with O2 sat persistent about 90 persons patient's denied any short of breath no chest pain Patient's TSH was low and currently levothyroxine was hold Patient had a stress test was done was all negative an echocardiogram per cardiology mild diastolic dysfunctions and suggest the like every other day Lasix Patient's otherwise remained stable discharge home with the stable conditions and to follow in office in 1 week and follow with the cardiology Discussed with the patient and the daughter about the all the test reports and follow-up plan Physical Exam Vital Signs: Temp Pulse Resp BP Pulse Ox 97.9 F 66 17 131/51 H 98 07/15/17 19:44 07/16/17 07:00 07/15/17 19:44 07/15/17 19:44 07/15/17 19:44 Intake & Output 07/15/17 07/16/17 07/17/17 06:59 06:59 06:59 Intake Total 1230 478 Balance 1230 478 Weight 58.8 kg 58.8 kg General appearance: PRESENT: no acute distress, well-developed, well-nourished Head exam: PRESENT: atraumatic, normocephalic Eye exam: PRESENT: conjunctiva pink, EOMI, PERRLA. ABSENT: scleral icterus Ear exam: PRESENT: normal external ear exam Mouth exam: PRESENT: moist, tongue midline Neck exam: PRESENT: full ROM. ABSENT: carotid bruit, JVD, lymphadenopathy, thyromegaly Respiratory exam: PRESENT: clear to auscultation savita Cardiovascular exam: PRESENT: RRR. ABSENT: diastolic murmur, rubs, systolic murmur Pulses: PRESENT: normal dorsalis pedis pul, +2 pedal pulses bilateral Vascular exam: PRESENT: normal capillary refill GI/Abdominal exam: PRESENT: normal bowel sounds, soft. ABSENT: distended, guarding, mass, organolmegaly, rebound, tenderness Rectal exam: PRESENT: deferred Extremities exam: ABSENT: pedal edema Musculoskeletal exam: PRESENT: ambulatory Neurological exam: PRESENT: alert, awake, oriented to person, oriented to place , oriented to time, oriented to situation, CN II-XII grossly intact. ABSENT: motor sensory deficit Psychiatric exam: PRESENT: appropriate affect, normal mood. ABSENT: homicidal ideation, suicidal ideation Skin exam: PRESENT: dry, intact, warm. ABSENT: cyanosis, rash Results Laboratory Results: 07/16/17 06:09 07/16/17 06:09 07/16/17 07/16/17 06:09 06:09 WBC 5.0 RBC 3.65 L Hgb 11.4 L Hct 33.5 L MCV 92 MCH 31.2 MCHC 34.0 RDW 13.2 Plt Count 205 Seg Neutrophils % 40.3 L Lymphocytes % 40.7 Monocytes % 11.8 Eosinophils % 6.3 H Basophils % 0.9 Absolute Neutrophils 2.0 Absolute Lymphocytes 2.0 Absolute Monocytes 0.6 Absolute Eosinophils 0.3 Absolute Basophils 0.0 Sodium 144.3 Potassium 4.2 Chloride 108 H Carbon Dioxide 28 Anion Gap 8 BUN 22 H Creatinine 0.72 Est GFR ( Amer) > 60 Est GFR (Non-Af Amer) > 60 Glucose 94 Calcium 9.2 07/13/17 07/13/17 07/14/17 21:03 21:03 03:03 Creatine Kinase 62 CK-MB (CK-2) 1.15 0.87 Troponin I < 0.012 < 0.012 NT-Pro-B Natriuret Pep 592 H 07/14/17 07/14/17 07/14/17 03:03 09:02 09:02 Creatine Kinase 53 60 CK-MB (CK-2) 1.08 Troponin I < 0.012 NT-Pro-B Natriuret Pep 756 H Impressions: Chest/Abdomen CTA 07/13/17 16:31 IMPRESSION: 1. There is no evidence of pulmonary emboli. 2. Apical pleural/ parenchymal scarring. 3. Prominent hiatal hernia. 4. Aortic atherosclerosis. 5. Thoracolumbar degenerative changes. Qualifiers - * PATEINT BEING DISCHARGED WITH ANY OF THE FOLLOWING DIAGNOSIS?: No VTE patient discharged on overlapping Therapy?: Yes Plan Time Spent: Greater than 30 Minutes - Patients following office 1 week and follow with the cardiology we will repeat the Chem-7 and repeat the TSH and free T4 in
[2017-07-16 10:00] VITALS: BP 134/51
--- NOTE | 2017-07-16 12:42 | PDOC PROGRESS REPORT ---
Subjective Progress Note for:: 07/16/17 Subjective:: Patient seems to be doing better. Patient was seen on morning rounds. Nuclear stress test results and 2D echocardiogram results were again reviewed. Pt is denying any chest arm or neck discomfort. Patient denying any PND, orthopnea. Patient denied any sustained palpitations, dizziness, syncope, near syncope. Patient denying any fever chills. Patient denying any other significant discomfort. Patient is maintaining sinus rhythm. Review of systems: Rest review of systems negative. Medications: Medications have been reviewed. Discharge medications were reviewed. Patient advised to stay on the small dose of Lasix. Lasix dose is being reduced to 20 mg p.o. every other day. Reason For Visit: SOB HYPOXIA Physical Exam Vital Signs: Temp Pulse Resp BP Pulse Ox 97.9 F 66 17 134/51 H 98 07/16/17 09:58 07/16/17 09:58 07/16/17 09:58 07/16/17 09:58 07/16/17 09:58 Intake & Output 07/15/17 07/16/17 07/17/17 06:59 06:59 06:59 Intake Total 1230 478 Balance 1230 478 Weight 58.8 kg 58.8 kg Exam: GENERAL: well-nourished and in no acute distress. Alert and oriented x3 HEAD: Atraumatic, normocephalic. EYES: Pupils equal round and reactive to light, extraocular movements intact, sclera anicteric, conjunctiva are normal. ENT: TMs normal, nares patent, oropharynx clear without exudates. Moist mucous membranes. No oral ulcerations or bleeding gums noted NECK: supple without lymphadenopathy. Trachea is central. No cervical or axillary lymphadenopathy noted. Carotids are 2+, JVD WNL LUNGS: Respiration seems nonlabored, no significant accessory muscle action noted. Breath sounds clear to auscultation bilaterally and equal noted. No wheezes rales or rhonchi noted. No significant dullness noted on percussion. CHEST: Palpation of the chest wall shows no significant chest wall tenderness. 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 ABDOMEN: Soft, no significant tenderness appreciated, normoactive bowel sounds. No guarding, no rebound. No rigidity noted . No masses appreciated. EXTREMITIES: Pedal pulses are 1-2+, no calf tenderness noted. No clubbing or cyanosis. negative pedal edema noted NEUROLOGICAL: Focused neurological exam showed no significant neurologic deficit. Normal speech, no focal weakness appreciated. PSYCH: Normal mood, normal affect. Judgment and insight within normal limits. SKIN: No significant ecchymosis, skin is noted to be warm. MUSCULOSKELETAL EXAM: No significant acute joint swelling noted. Results Laboratory Results: 07/16/17 06:09 07/16/17 06:09 07/16/17 07/16/17 06:09 06:09 WBC 5.0 RBC 3.65 L Hgb 11.4 L Hct 33.5 L MCV 92 MCH 31.2 MCHC 34.0 RDW 13.2 Plt Count 205 Seg Neutrophils % 40.3 L Lymphocytes % 40.7 Monocytes % 11.8 Eosinophils % 6.3 H Basophils % 0.9 Absolute Neutrophils 2.0 Absolute Lymphocytes 2.0 Absolute Monocytes 0.6 Absolute Eosinophils 0.3 Absolute Basophils 0.0 Sodium 144.3 Potassium 4.2 Chloride 108 H Carbon Dioxide 28 Anion Gap 8 BUN 22 H Creatinine 0.72 Est GFR ( Amer) > 60 Est GFR (Non-Af Amer) > 60 Glucose 94 Calcium 9.2 07/13/17 07/13/17 07/14/17 21:03 21:03 03:03 Creatine Kinase 62 CK-MB (CK-2) 1.15 0.87 Troponin I < 0.012 < 0.012 NT-Pro-B Natriuret Pep 592 H 07/14/17 07/14/17 07/14/17 03:03 09:02 09:02 Creatine Kinase 53 60 CK-MB (CK-2) 1.08 Troponin I < 0.012 NT-Pro-B Natriuret Pep 756 H EKG Comments: EKG strips reviewed. Showed sinus rhythm. No sustained tacky or bradycardia noted. Impressions: Chest/Abdomen CTA 07/13/17 16:31 IMPRESSION: 1. There is no evidence of pulmonary emboli. 2. Apical pleural/ parenchymal scarring. 3. Prominent hiatal hernia. 4. Aortic atherosclerosis. 5. Thoracolumbar degenerative changes. Assessment & Plan - Diagnosis (1) Shortness of breath Is this a current diagnosis for this admission?: Yes (2) CHF (congestive heart failure) Qualifiers: Heart failure chronicity: unspecified Is this a current diagnosis for this admission?: Yes (3) Hyperlipidemia Qualifiers: Hyperlipidemia type: unspecified Qualified Code(s): E78.5 - Hyperlipidemia , unspecified Is this a current diagnosis for this admission?: Yes (4) Hypertension Qualifiers: Hypertension type: essential hypertension Qualified Code(s): I10 - Essential (primary) hypertension Is this a current diagnosis for this admission?: Yes (5) Hypothyroidism Qualifiers: Hypothyroidism type: unspecified Qualified Code(s): E03.9 - Hypothyroidism , unspecified Is this a current diagnosis for this admission?: Yes (6) History of pulmonary embolism Is this a current diagnosis for this admission?: No - Notes Notes: Shortness of breath: [place] to be most likely related to CHF from diastolic dysfunction. 2D echocardiogram shows no significant valvular abnormalities. LVEF was relatively well preserved. Nuclear stress test negative for any definitive evidence of pharmacologic stress-induced ischemia. Recommend Lasix 20 mg every other day.. Congestive heart failure: [place] to be related to diastolic dysfunction. Patient advised salt and fluid restriction. Continue Lasix at 20 mg every other day. It seems on talking to patient's daughter that patient fluid intake was excessive. Hyperlipidemia: Continue statin therapy. LDL goal should be less than 100. Hypertension: Continue current antihypertensive. Blood pressure goal is 140/90 , however could be 150/90 in this elderly patient. Hypothyroidism: Continue replacement therapy. History of pulmonary embolism: CTA of the chest reviewed. Rules out any new pulmonary embolism. Currently is stable. Patient to continue with DVT prophylaxis. Patient advised to follow-up with me for further management of CHF. - Time Time with patient: Greater than 35 minutes - CODE STATUS was discussed, patient remains full code. Surrogate decision-maker unchanged. Multiple medical problems were addressed. More than 50% of the time spent coordinating care, discussing management plans with involved caregivers. Management plans discussed with involved personnels. Medical decision making was of moderate to high complexity, patient's has multiple comorbidities. Medications reviewed and adjusted accordingly: Yes
--- NOTE | 2017-07-16 12:45 | PDOC PROGRESS REPORT ---
Subjective Progress Note for:: 07/15/17 Subjective:: Patient seems to be doing better with gradual improvement. Pt is denying any chest arm or neck discomfort. Patient denying any PND, orthopnea. Patient denied any sustained palpitations, dizziness, syncope, near syncope. Patient denying any fever chills. Patient denying any other significant discomfort. Patient is maintaining sinus rhythm. Review of systems: Rest review of systems negative. Medications: Medications have been reviewed. Reason For Visit: SOB HYPOXIA Physical Exam Vital Signs: Temp Pulse Resp BP Pulse Ox 97.9 F 78 17 131/51 H 98 07/15/17 19:44 07/15/17 19:44 07/15/17 19:44 07/15/17 19:44 07/15/17 19:44 Intake & Output 07/14/17 07/15/17 07/16/17 06:59 06:59 06:59 Intake Total 320 1230 266 Balance 320 1230 266 Weight 57.4 kg 58.8 kg Exam: GENERAL: well-nourished and in no acute distress. Alert and oriented x3 HEAD: Atraumatic, normocephalic. EYES: Pupils equal round and reactive to light, extraocular movements intact, sclera anicteric, conjunctiva are normal. ENT: TMs normal, nares patent, oropharynx clear without exudates. Moist mucous membranes. No oral ulcerations or bleeding gums noted NECK: supple without lymphadenopathy. Trachea is central. No cervical or axillary lymphadenopathy noted. Carotids are 2+, JVD WNL LUNGS: Respiration seems nonlabored, no significant accessory muscle action noted. Few bibasilar fine crackles are noted. No wheezes rales or rhonchi noted. No significant dullness noted on percussion. CHEST: Palpation of the chest wall shows no significant chest wall tenderness. 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 ABDOMEN: Soft, no significant tenderness appreciated, normoactive bowel sounds. No guarding, no rebound. No rigidity noted . No masses appreciated. EXTREMITIES: Pedal pulses are 1-2+, no calf tenderness noted. No clubbing or cyanosis. negative pedal edema noted NEUROLOGICAL: Focused neurological exam showed no significant neurologic deficit. Normal speech, no focal weakness appreciated. PSYCH: Normal mood, normal affect. Judgment and insight within normal limits. SKIN: No significant ecchymosis, skin is noted to be warm. MUSCULOSKELETAL EXAM: No significant acute joint swelling noted. Results Laboratory Results: 07/15/17 05:37 07/15/17 05:37 07/15/17 07/15/17 05:37 05:37 WBC 5.2 RBC 3.75 Hgb 11.5 L Hct 34.5 L MCV 92 MCH 30.8 MCHC 33.5 RDW 12.8 Plt Count 184 Seg Neutrophils % 41.6 L Lymphocytes % 38.8 Monocytes % 13.7 H Eosinophils % 5.1 Basophils % 0.8 Absolute Neutrophils 2.1 Absolute Lymphocytes 2.0 Absolute Monocytes 0.7 Absolute Eosinophils 0.3 Absolute Basophils 0.0 Sodium 144.1 Potassium 4.1 Chloride 107 Carbon Dioxide 29 Anion Gap 8 BUN 18 Creatinine 0.65 Est GFR ( Amer) > 60 Est GFR (Non-Af Amer) > 60 Glucose 99 Calcium 9.1 07/13/17 07/13/17 07/14/17 21:03 21:03 03:03 Creatine Kinase 62 CK-MB (CK-2) 1.15 0.87 Troponin I < 0.012 < 0.012 NT-Pro-B Natriuret Pep 592 H 07/14/17 07/14/17 07/14/17 03:03 09:02 09:02 Creatine Kinase 53 60 CK-MB (CK-2) 1.08 Troponin I < 0.012 NT-Pro-B Natriuret Pep 756 H Impressions: Chest/Abdomen CTA 07/13/17 16:31 IMPRESSION: 1. There is no evidence of pulmonary emboli. 2. Apical pleural/ parenchymal scarring. 3. Prominent hiatal hernia. 4. Aortic atherosclerosis. 5. Thoracolumbar degenerative changes. Assessment & Plan - Diagnosis (1) Shortness of breath Is this a current diagnosis for this admission?: Yes (2) CHF (congestive heart failure) Qualifiers: Heart failure chronicity: unspecified Is this a current diagnosis for this admission?: Yes (3) Hyperlipidemia Qualifiers: Hyperlipidemia type: unspecified Qualified Code(s): E78.5 - Hyperlipidemia , unspecified Is this a current diagnosis for this admission?: Yes (4) Hypertension Qualifiers: Hypertension type: essential hypertension Qualified Code(s): I10 - Essential (primary) hypertension Is this a current diagnosis for this admission?: Yes (5) Hypothyroidism Qualifiers: Hypothyroidism type: unspecified Qualified Code(s): E03.9 - Hypothyroidism , unspecified Is this a current diagnosis for this admission?: Yes (6) History of pulmonary embolism Is this a current diagnosis for this admission?: No - Notes Notes: Generally improved. Nuclear stress test results were discussed. Shortness of breath: [place] to be most likely related to CHF from diastolic dysfunction. 2D echocardiogram shows no significant valvular abnormalities. LVEF was relatively well preserved. Nuclear stress test negative for any definitive evidence of pharmacologic stress-induced ischemia. Recommend Lasix 20 mg every other day.. Congestive heart failure: [place] to be related to diastolic dysfunction. Patient advised salt and fluid restriction. Continue current dose of diuretics. Hyperlipidemia: Continue statin therapy. LDL goal should be less than 100. Hypertension: Continue current antihypertensive. Blood pressure goal is 140/90 , however could be 150/90 in this elderly patient. Hypothyroidism: Continue replacement therapy. History of pulmonary embolism: CTA of the chest reviewed. Rules out any new pulmonary embolism. Currently is stable. Patient to continue with DVT prophylaxis. - Time Time with patient: Greater than 35 minutes - Patient was seen multiple times. Total time exceeds 40 minutes. In the morning nuclear stress test procedure, risks benefits, alternatives were discussed. Patient seen during the stress test. Patient also seen after stress test when results were discussed with the patient in detail. Patient's questions were answered. Nuclear stress test results were discussed with the patient. Patient was informed that no definitive evidence of pharmacologic stress-induced ischemia noted. No definite fixed defects were noted. Patient informed that occasionally significant single vessel disease or balanced ischemia could be missed. However based on the current study results, would recommend aggressive risk factor modification and medical therapy. It may also be worthwhile to consider evaluation or empiric management of other causes of chest pain. Should no other cause be found and if persistent in having chest pain, then cardiac catheterization should be considered. Right now, recommendations are for aggressive risk factor modification and medical management. Medications reviewed and adjusted accordingly: Yes
--- NOTE | 2017-07-16 12:47 | PDOC PROGRESS REPORT ---
Subjective Progress Note for:: 07/14/17 Subjective:: Patient seems to be doing better with gradual improvement. Pt is denying any chest arm or neck discomfort. Patient denying any PND, orthopnea. Patient denied any sustained palpitations, dizziness, syncope, near syncope. Patient denying any fever chills. Patient denying any other significant discomfort. Patient is maintaining sinus rhythm. Review of systems: Rest review of systems negative. Medications: Medications have been reviewed. Reason For Visit: SOB HYPOXIA Physical Exam Vital Signs: Temp Pulse Resp BP Pulse Ox 97.9 F 78 17 131/51 H 98 07/15/17 19:44 07/15/17 19:44 07/15/17 19:44 07/15/17 19:44 07/15/17 19:44 Intake & Output 07/14/17 07/15/17 07/16/17 06:59 06:59 06:59 Intake Total 320 1230 266 Balance 320 1230 266 Weight 57.4 kg 58.8 kg Exam: GENERAL: well-nourished and in no acute distress. Alert and oriented x3 HEAD: Atraumatic, normocephalic. EYES: Pupils equal round and reactive to light, extraocular movements intact, sclera anicteric, conjunctiva are normal. ENT: TMs normal, nares patent, oropharynx clear without exudates. Moist mucous membranes. No oral ulcerations or bleeding gums noted NECK: supple without lymphadenopathy. Trachea is central. No cervical or axillary lymphadenopathy noted. Carotids are 2+, JVD 8-10 cm LUNGS: Respiration seems nonlabored, no significant accessory muscle action noted. Few bibasilar fine crackles are noted. No wheezes rales or rhonchi noted. No significant dullness noted on percussion. CHEST: Palpation of the chest wall shows no significant chest wall tenderness. 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 ABDOMEN: Soft, no significant tenderness appreciated, normoactive bowel sounds. No guarding, no rebound. No rigidity noted . No masses appreciated. EXTREMITIES: Pedal pulses are 1-2+, no calf tenderness noted. No clubbing or cyanosis. negative pedal edema noted NEUROLOGICAL: Focused neurological exam showed no significant neurologic deficit. Normal speech, no focal weakness appreciated. PSYCH: Normal mood, normal affect. Judgment and insight within normal limits. SKIN: No significant ecchymosis, skin is noted to be warm. MUSCULOSKELETAL EXAM: No significant acute joint swelling noted. Results Laboratory Results: 07/15/17 05:37 07/15/17 05:37 07/15/17 07/15/17 05:37 05:37 WBC 5.2 RBC 3.75 Hgb 11.5 L Hct 34.5 L MCV 92 MCH 30.8 MCHC 33.5 RDW 12.8 Plt Count 184 Seg Neutrophils % 41.6 L Lymphocytes % 38.8 Monocytes % 13.7 H Eosinophils % 5.1 Basophils % 0.8 Absolute Neutrophils 2.1 Absolute Lymphocytes 2.0 Absolute Monocytes 0.7 Absolute Eosinophils 0.3 Absolute Basophils 0.0 Sodium 144.1 Potassium 4.1 Chloride 107 Carbon Dioxide 29 Anion Gap 8 BUN 18 Creatinine 0.65 Est GFR ( Amer) > 60 Est GFR (Non-Af Amer) > 60 Glucose 99 Calcium 9.1 07/13/17 07/13/17 07/14/17 21:03 21:03 03:03 Creatine Kinase 62 CK-MB (CK-2) 1.15 0.87 Troponin I < 0.012 < 0.012 NT-Pro-B Natriuret Pep 592 H 07/14/17 07/14/17 07/14/17 03:03 09:02 09:02 Creatine Kinase 53 60 CK-MB (CK-2) 1.08 Troponin I < 0.012 NT-Pro-B Natriuret Pep 756 H EKG Comments: Telemetry shows sinus rhythm without any sustained tachycardia or bradycardia. Impressions: Chest/Abdomen CTA 07/13/17 16:31 IMPRESSION: 1. There is no evidence of pulmonary emboli. 2. Apical pleural/ parenchymal scarring. 3. Prominent hiatal hernia. 4. Aortic atherosclerosis. 5. Thoracolumbar degenerative changes. Assessment & Plan - Diagnosis (1) Shortness of breath Is this a current diagnosis for this admission?: Yes (2) CHF (congestive heart failure) Qualifiers: Heart failure chronicity: unspecified Is this a current diagnosis for this admission?: Yes (3) Hyperlipidemia Qualifiers: Hyperlipidemia type: unspecified Qualified Code(s): E78.5 - Hyperlipidemia , unspecified Is this a current diagnosis for this admission?: Yes (4) Hypertension Qualifiers: Hypertension type: essential hypertension Qualified Code(s): I10 - Essential (primary) hypertension Is this a current diagnosis for this admission?: Yes (5) Hypothyroidism Qualifiers: Hypothyroidism type: unspecified Qualified Code(s): E03.9 - Hypothyroidism , unspecified Is this a current diagnosis for this admission?: Yes (6) History of pulmonary embolism Is this a current diagnosis for this admission?: No - Notes Notes: Shortness of breath: [place] to be most likely related to CHF from diastolic dysfunction. 2D echocardiogram report was reviewed with the patient. 2D echocardiogram shows no significant valvular abnormalities. LVEF was relatively well preserved. Patient is scheduled for a nuclear stress test for tomorrow. Risk benefits were discussed. Continue current dose of diuretic therapy. Congestive heart failure: [place] to be related to diastolic dysfunction. Patient advised salt and fluid restriction. Hyperlipidemia: Continue statin therapy. LDL goal should be less than 100. Hypertension: Continue current antihypertensive. Blood pressure goal is 140/90 , however could be 150/90 in this elderly patient. Hypothyroidism: Continue replacement therapy. History of pulmonary embolism: CTA of the chest reviewed. Rules out any new pulmonary embolism. Currently is stable. Patient to continue with DVT prophylaxis. - Time Time with patient: Greater than 35 minutes - CODE STATUS was discussed, patient remains full code. Surrogate decision-maker unchanged. Multiple medical problems were addressed. More than 50% of the time spent coordinating care, discussing management plans with involved caregivers. Management plans discussed with involved personnels. Medical decision making was of moderate to high complexity, patient's has multiple comorbidities. Medications reviewed and adjusted accordingly: Yes
== END 2017-07-16 10:30 | disposition home or self-care (01) | DRG 204 ==
LOC: ER 14:19 → EH 17:53 → 4W 20:30
PROVIDERS: ADMIT Family Medicine; ATTEND Family Medicine
DX: R06.02 Shortness of breath (principal); I50.30 Unspecified diastolic (congestive) heart failure; I11.0 Hypertensive heart disease with heart failure; I48.91 Unspecified atrial fibrillation; E78.5 Hyperlipidemia, unspecified; Z86.711 Personal history of pulmonary embolism; R53.83 Other fatigue; E03.9 Hypothyroidism, unspecified; K21.9 Gastro-esophageal reflux disease without esophagitis; I34.0 Nonrheumatic mitral (valve) insufficiency; M19.90 Unspecified osteoarthritis, unspecified site; Z90.12 Acquired absence of left breast and nipple; Z82.3 Family history of stroke; Z82.49 Family history of ischemic heart disease and other diseases of the circulatory system; Z80.9 Family history of malignant neoplasm, unspecified; Z88.2 Allergy status to sulfonamides; Z88.6 Allergy status to analgesic agent; Z91.030 Bee allergy status
CPT/HCPCS: 36415; 71275; 78452; 80048; 80053; 82550; 82553; 83880; 84439; 84443; 84484; 85025; 85610; 93005; 93010; 93017; 93306; 99285; A9500; J0280; J1650; J2785; Q9969

== ENCOUNTER → 2017-08-26 | Outpatient (CLI) | payer MEDICARE, OTHER ==
[2017-08-26 13:21] LABS: ANION GAP 8 (5-19); BLOOD UREA NITROGEN 19 mg/dL (7-20); CARBON DIOXIDE 30 mmol/L (22-30); CHLORIDE 106 mmol/L (98-107); GLUCOSE 47 mg/dL (75-110); POTASSIUM 4.5 mmol/L (3.6-5.0)
== END ==
LOC: LAB 12:13
PROVIDERS: ATTEND Family Medicine
DX: E87.5 Hyperkalemia (principal)
CPT/HCPCS: 36415; 80048

== ENCOUNTER → 2018-03-01 | Outpatient (CLI) | payer MEDICARE ==
--- NOTE | 2018-03-01 09:18 | RADIOLOGY REPORT (SQ) ---
EXAM DESCRIPTION: CT HEAD WITHOUT COMPLETED DATE/TIME: 03/01/2018 9:03 am REASON FOR STUDY: TIA (G45.9) G45.9 TRANSIENT CEREBRAL ISCHEMIC ATTACK, UNSPECIFIED COMPARISON: 01/11/2015 TECHNIQUE: Axial images acquired through the brain without intravenous contrast. Images reviewed wi th bone, brain and subdural windows. Additional sagittal and coronal reconstructions were generated. Images stored on PACS. All CT scanners at this facility use dose modulation, iterative reconstruction, and/or weight based d osing when appropriate to reduce radiation dose to as low as reasonably achievable (ALARA). [facility]: Dose Right [facility]: CareDose [facility]: Dose Right [facility]: Teradose 4D [facility]: Smart [employer] RADIATION DOSE: CT Rad equipment meets quality standard of care and radiation dose reduction techniq ues were employed. CTDIvol: 48.7 mGy. DLP: 954 mGy-cm. LIMITATIONS: None. FINDINGS: VENTRICLES: Prominent commensurate with the sulci.. The cisterns are patent. CEREBRUM: Chronic mild small vessel ischemic changes. No masses. No hemorrhage. No midline shift. No evidence for acute infarction. CEREBELLUM: No masses. No hemorrhage. No alteration of density. No evidence for acute infarction. EXTRAAXIAL SPACES: Age related involutional change. No fluid collections. No masses. ORBITS AND GLOBE: No intra- or extraconal masses. Normal contour of globe without masses. CALVARIUM: No fracture. PARANASAL SINUSES: Deviation the nasal septum to the left of the midline. Nasal bony spur. SOFT TISSUES: No mass or hematoma. OTHER: No other significant finding. IMPRESSION: 1. No significant interval changes since the prior examination dated 01/11/2015. No ac duran findings. 2. Atrophy and mild chronic small vessel ischemic changes. EVIDENCE OF ACUTE STROKE: NO. COMMENT: Quality ID # [id number]: Final reports with documentation of one or more dose reduction techniques (e.g., Automated exposure control, adjustment of the mA and/or kV according to patient size, use of iterative reconstruction technique) TECHNICAL DOCUMENTATION: JOB ID: [id number] [employer]- All Rights Reserved Reading location - IP/workstation name: [email or web address]
== END ==
LOC: RAD 08:36
PROVIDERS: ATTEND Physician Assistant Medical
DX: G45.9 Transient cerebral ischemic attack, unspecified (principal)
CPT/HCPCS: 70450

== ENCOUNTER → 2018-11-25 | Outpatient (CLI) | payer MEDICARE, OTHER ==
[2018-11-25 11:24] LABS: BLOOD UREA NITROGEN 23 mg/dL (7-20); CALCIUM 9.5 mg/dL (8.4-10.2); CARBON DIOXIDE 30 mmol/L (22-30); CHLORIDE 106 mmol/L (98-107); GLUCOSE 93 mg/dL (75-110); POTASSIUM 5.4 mmol/L (3.6-5.0)
[2018-11-25 11:26] LABS: ANION GAP 4 (5-19)
== END ==
LOC: OD 09:55
PROVIDERS: ATTEND Family Medicine
DX: E87.5 Hyperkalemia (principal)
CPT/HCPCS: 36415; 80048

== ENCOUNTER → 2019-11-03 | Outpatient (CLI) | payer MEDICARE, OTHER ==
--- NOTE | 2019-11-03 12:15 | RADIOLOGY REPORT (SQ) ---
EXAM DESCRIPTION: CTA CHEST IMAGES COMPLETED DATE/TIME: 11/03/2019 11:56 am REASON FOR STUDY: HYPOXIA R09.02 HYPOXEMIA Z86.711 PERSONAL HISTORY OF PULMONARY EMBOLISM COMPARISON: 07/13/2017 TECHNIQUE: CT scan of the chest performed using helical scanning technique with dynamic intravenous contrast injection. Images reviewed with lung, soft tissue and bone windows. Reconstructed coronal and sagittal MPR images reviewed. Additional 3 dimensional post-processing performed to develop Maximal Intensity Projection images (TN P). All images stored on PACS. All CT scanners at this facility use dose modulation, iterative reconstruction, and/or weight based d osing when appropriate to reduce radiation dose to as low as reasonably achievable (ALARA). [facility]: Dose Right [facility]: CareDose [facility]: Dose Right [facility]: Teradose 4D [facility]: [employer] CONTRAST TYPE AND DOSE: contrast/concentration: Isovue 350.00 mmol/ml; Total Contrast Delivered: 45. 0 ml; Total Saline Delivered: 75.0 ml Contrast bolus optimized for the pulmonary arteries. Not diagnostic for the aorta. RENAL FUNCTION: Creatinine 0.8 RADIATION DOSE: CT Rad equipment meets quality standard of care and radiation dose reduction techniq ues were employed. CTDIvol: 5.5 - 7.5 mGy. DLP: 199 mGy-cm. . LIMITATIONS: None. FINDINGS: LUNGS AND PLEURA: Scarring in the lung apices. No consolidation or pleural effusions. AORTA AND GREAT VESSELS: Atherosclerotic change. HEART: No pericardial effusion. No significant coronary artery calcifications. PULMONARY ARTERIES: No emboli visualized in the main pulmonary arteries or the segmental branches. HILAR AND MEDIASTINAL STRUCTURES: No identified masses or abnormal nodes. HARDWARE: None in the chest. UPPER ABDOMEN: No significant findings. Limited exam. THYROID AND OTHER SOFT TISSUES: No masses. No adenopathy. BONES: No acute or significant finding. 3D MIPS: Confirm above findings. OTHER: Moderate hiatal hernia is again noted and unchanged. IMPRESSION: Scarring in lung apices. No pulmonary emboli. No focal consolidation. COMMENT: Quality ID # [id number]: Final reports with documentation of one or more dose reduction techniques (e.g., Automated exposure control, adjustment of the mA and/or kV according to patient size, use of iterative reconstruction technique) TECHNICAL DOCUMENTATION: JOB ID: [id number] 2010 [employer]- All Rights Reserved Reading location - IP/workstation name: [email or web address]
== END ==
LOC: RAD 11:06
PROVIDERS: ATTEND Family Medicine
DX: R09.02 Hypoxemia (principal); K44.9 Diaphragmatic hernia without obstruction or gangrene; Z86.711 Personal history of pulmonary embolism
CPT/HCPCS: 71275; 82565